=== PATIENT | female | born 2005 | race Caucasian/White ===

== ENCOUNTER 2024-08-15 21:38 | Emergency (ER) | payer OTHER ==
[2024-08-15] MEDS ORDERED: NA CHLORIDE 0.9% 1,000 ML ONE (22:36)
[2024-08-15 23:31] LABS: Absolute Lymphocytes (CBC) 0.4 K/uL (0.7-4.9); Absolute Monocytes 0.6 K/uL (0.1-1.3); Absolute Neutrophil 10.7 K/uL (1.8-8.0); Basophils % 0.3 % (0-1.3); Eosinophils % 0.1 % (0-4.4); Hematocrit 34.6 % (36.0-45.0); Hemoglobin 11.1 g/dL (12.0-15.0); Lymphocytes % 3.8 % (15.3-44.8); MCH 24.8 pg (27.0-35.0); MCHC 32.1 g/dL (32.0-36.0); MCV 77.3 fL (80-100); MPV 9.8 fL (7.6-11.3); Monocytes % 4.8 % (3.3-12.3); Platelets 298 thou/uL (152-406); RBC Red Blood Cell Count 4.47 M/uL (3.86-4.86); Red Cell Distribution Width 14.1 % (12.1-15.2)
[2024-08-15 23:35] LABS: PT Prothrombin Time 12.8 SECONDS (9.4-12.5); Protime INR 1.15
[2024-08-15 23:45] LABS: ALT/SGPT 65 U/L (13-56); AST/SGOT 69 U/L (15-37); Albumin 2.7 g/dL (3.4-5.0); Albumin/Globulin Ratio 0.6 (1.1-1.8); Alkaline Phosphatase 128 U/L (45-117); Anion Gap 10.2 mEq/L (5.0-15.0); BUN Blood Urea Nitrogen 4 mg/dL (7-18); Bicarbonate 23 mEq/L (21-32); Bilirubin Total 0.3 mg/dL (0.2-1.0); Globulin 4.6 g/dL (2.3-3.5); Glomerular Filtration Rate 128 ml/min (=/>90); Glucose Level 103 mg/dL (74-106); NT PRO-BNP 18 pg/mL (<125); Potassium 3.2 mEq/L (3.5-5.1); Protein, Total 7.3 g/dL (6.4-8.2); Sodium Level 136 mEq/L (136-145)
[2024-08-15 23:46] LABS: Troponin High Sensitivity < 3.0 pg/mL (<58.9)
[2024-08-15 23:54] LABS: SARS-CoV-2 Antigen CONTROL BLUE LINE VIS/BG OK; SARS-CoV-2 Antigen Rapid Res Negative (Negative)
[2024-08-16] MEDS ORDERED: OSELTAMIVIR 75 MG CAP PO ONE
[2024-08-16] MEDS ORDERED: POTASSIUM 25 MEQ EFFERV TAB ONE
[2024-08-16] MEDS ORDERED: ACETAMINOPHEN 500 MG TAB ONE
[2024-08-16] MEDS ORDERED: NA CHLORIDE 0.9% 2,000 ML ONE
[2024-08-16 00:29] LABS: Specific Gravity 1.019 (1.005-1.030); Sqamous Epithelial <5 /HPF (None Seen); Urine Bacteria None Seen /HPF (<20); Urine Bilirubin NEGATIVE (Negative); Urine Blood Negative (Negative); Urine Clarity Clear (Clear); Urine Color Light-Yellow (Yellow); Urine Culture Reflex Order NOT NEEDED; Urine Glucose NEGATIVE (Negative); Urine Ketones 1+ (Negative); Urine Microscopic Reflex YN ORDER UMIC; Urine Nitrite NEGATIVE (Negative); Urine Protein NEGATIVE (Negative); Urine RBC None Seen /HPF (None Seen); Urine Urobilinogen Normal (Normal); Urine WBC <5 /HPF (<5)
[2024-08-16 01:05] LABS: Band Neutrophils 14 % (0-1); Differential Total Cells Count 100; Lymphocytes 5 % (15-42); Monocytes 4 % (0-10); Segmented Neutrophils 77 % (40-80)
[2024-08-16 01:06] LABS: Blood Morphology Comment NOT SEEN (NOT SEEN); Platelet Estimate ADEQ
--- NOTE | 2024-08-16 01:34 | ER ---
Nurse's Notes [facility] Name: Mi Cordova Age: 19 yrs Sex: Female : 2005 Arrival Date: 08/15/2024 Time: 21:38 Bed 6 Private MD: Diagnosis: Influenza due to identified novel influenza A virus with other respiratory manifestations;Shortness of breath;Sepsis, unspecified organism Presentation: 08/15 22:03 Chief complaint: Patient states: x3 days shivering, cough, congestion, body aches. Went tm6 to PCP got azithromycin, but feeling worse today. Took tylenol around 1900. Having nausea and vomiting. Coronavirus screen: Client denies travel out of the [place] in the last 14 days. Ebola Screen: Patient negative for fever greater than or equal to 101.5 degrees Fahrenheit, and additional compatible Ebola Virus Disease symptoms Patient denies exposure to infectious person. Patient denies travel to an Ebola-affected area in the 21 days before illness onset. No symptoms or risks identified at this time. Initial Sepsis Screen: Does the patient meet any 2 criteria? Temp <36.0*C (96.8*F)) or > 38.3*C (100.9*F). HR > 90 bpm. Yes Does the patient have a suspected source of infection? No. Patient's initial sepsis screen is negative. Risk Assessment: Do you want to hurt yourself or someone else? Patient reports no desire to harm self or others. Onset of symptoms was August 13, 2024. 22:03 Method Of Arrival: Ambulatory tm6 22:03 Acuity: TIGRE 3 tm6 Triage Assessment: 22:04 General: Appears uncomfortable, Behavior is calm, cooperative. Pain: Complains of pain tm6 in body aches Pain currently is 5 out of 10 on a pain scale. Quality of pain is described as aching. EENT: Reports nasal congestion nasal discharge. Neuro: Level of Consciousness is awake, alert, obeys commands, Oriented to person, place, time, situation. Cardiovascular: Patient's skin is warm and dry. Respiratory: Airway is patent Respiratory effort is even, unlabored, Respiratory pattern is regular, symmetrical, Breath sounds are clear. GI: Abdomen is flat, non-distended, Reports nausea, vomiting, since x3 days. : No signs and/or symptoms were reported regarding the genitourinary system. Derm: No signs and/or symptoms reported regarding the dermatologic system. Musculoskeletal: Reports body aches. 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 - Infectious Disease History:: Denies. - Social history:: Smoking status: Patient denies any tobacco usage or history of. Screenin:47 [facility] ED Fall Risk Assessment (Adult) History of falling in the last 3 months, bm8 including since admission No falls in past 3 months (0 pts) Confusion or Disorientation No (0 pts) Intoxicated or Sedated No (0 pts) Impaired Gait No (0 pts) Mobility Assist Device Used No (0 pt) Altered Elimination No (0 pt) Score/Fall Risk Level 0 - 2 = Low Risk Oriented to surroundings, Maintained a safe environment, Educated pt \T\ family on fall prevention, incl call for assistance when getting out of bed, Assessed \T\ reinforced patient's understanding of fall precautions, Hourly rounding (assess needs \T\ fall precautionary measures) done, Used ambulatory aids as needed (educated on \T\ assisted with), Used gait belt as appropriate. Abuse screen: Denies threats or abuse. Nutritional screening: No deficits noted. Tuberculosis screening: No symptoms or risk factors identified. Assessment: 22:45 Reassessment: Patient appears in no apparent distress at this time. Patient and/or bm8 family updated on plan of care and expected duration. Pain level reassessed. Patient is alert, oriented x 3, equal unlabored respirations, skin warm/dry/pink. Reassessment: pt reports cough congestion and fever for three days. General: Appears in no apparent distress. uncomfortable, Behavior is calm, cooperative, appropriate for age. Pain: Complains of pain in chest Pain does not radiate. Pain currently is 5 out of 10 on a pain scale. Quality of pain is described as aching, Pain began. Neuro: No deficits noted. Level of Consciousness is awake, alert, obeys commands, Oriented to person, place, time, situation, Appropriate for age. Cardiovascular: Reports palpitations, Capillary refill < 3 seconds in bilateral fingers Patient's skin is warm and dry. Rhythm is sinus tachycardia. Respiratory: Reports cough that is non-productive, Airway is patent Trachea midline Respiratory effort is even, unlabored, Respiratory pattern is regular, symmetrical, Breath sounds are clear bilaterally. GI: No signs and/or symptoms were reported involving the gastrointestinal system. : No signs and/or symptoms were reported regarding the genitourinary system. EENT: Throat is clear bilaterally Reports nasal congestion nasal discharge. Derm: No signs and/or symptoms reported regarding the dermatologic system. 08/16 00:10 Reassessment: Patient appears in no apparent distress at this time. No changes from bm8 previously documented assessment. Patient and/or family updated on plan of care and expected duration. Pain level reassessed. Patient is alert, oriented x 3, equal unlabored respirations, skin warm/dry/pink. 01:04 Reassessment: Patient appears in no apparent distress at this time. Patient and/or bm8 family updated on plan of care and expected duration. Pain level reassessed. Patient is alert, oriented x 3, equal unlabored respirations, skin warm/dry/pink. Patient states feeling better. Patient states symptoms have improved. 02:27 Reassessment: Patient appears in no apparent distress at this time. No changes from lg3 previously documented assessment. Patient and/or family updated on plan of care and expected duration. Pain level reassessed. Patient is alert, oriented x 3, equal unlabored respirations, skin warm/dry/pink. 03:58 Reassessment: Patient appears in no apparent distress at this time. Patient and/or bm8 family updated on plan of care and expected duration. Pain level reassessed. Patient is alert, oriented x 3, equal unlabored respirations, skin warm/dry/pink. Patient states feeling better. Patient states symptoms have improved. 04:09 Reassessment: report given to LOLIS Aguilar at [facility]. 8 Vital Signs: 08/15 21:59 Temp 101(O); tm6 22:00 BP 139 / 81; Pulse 140; Resp 20; Pulse Ox 100% on R/A; MAP 98 mmHg; Weight 97.07 kg; tm6 Height 6 ft. 0 in. ; 22:47 BP 132 / 87; Pulse 137; Resp 20; Pulse Ox 100% ; Pain 5/10; bm8 08/16 00:09 BP 120 / 80; Pulse 133; Resp 20; Temp 101.7; Pulse Ox 99% ; Pain 4/10; bm8 01:04 BP 118 / 65; Pulse 137; Resp 21; Temp 101.2; Pulse Ox 98% ; Pain 4/10; bm8 02:28 BP 120 / 64; Pulse 139; Resp 19 S; Pulse Ox 98% on R/A; lg3 03:58 BP 113 / 48; Pulse 116; Resp 20; Temp 98.5; Pulse Ox 98% ; Pain 0/10; bm8 08/15 22:00 Body Mass Index 29.02 (97.07 kg, 182.88 cm) tm6 22:47 Pain Scale: Adult bm8 08/16 00:09 Pain Scale: Adult bm8 01:04 Pain Scale: Adult bm8 03:58 Pain Scale: Adult bm8 Delray Coma Score: 08/15 22:47 Eye Response: spontaneous(4). Motor Response: obeys commands(6). Verbal Response: bm8 oriented(5). Total: 15. 08/16 00:09 Eye Response: spontaneous(4). Motor Response: obeys commands(6). Verbal Response: bm8 oriented(5). Total: 15. 01:04 Eye Response: spontaneous(4). Motor Response: obeys commands(6). Verbal Response: bm8 oriented(5). Total: 15. 03:58 Eye Response: spontaneous(4). Motor Response: obeys commands(6). Verbal Response: bm8 oriented(5). Total: 15. ED Course: 08/15 21:43 Patient arrived in ED. gm2 21:54 Luca Melissa PA is PHCP. cp 21:54 Winnie Oden MD is Attending Physician. cp 22:04 Triage completed. tm6 22:06 Arm band placed on right wrist. tm6 22:25 Missed attempt(s): 20 gauge in right antecubital area. Bleeding controlled, band aid bm8 applied, catheter tip intact. 22:35 Initial lab(s) drawn, by me, sent to lab. First set of blood cultures drawn by me, EKG bm8 done, by ED staff, reviewed by Luca LE. Inserted saline lock: 22 gauge in left antecubital area, using aseptic technique. Blood collected. Flushed with 10 mL NS. Patient maintains SpO2 saturation greater than 95% on room air. 22:44 Kamlesh Chaudhari, RN is Primary Nurse. bm8 22:47 Patient has correct armband on for positive identification. Placed in gown. Bed in low bm8 position. Call light in reach. Side rails up X2. Adult w/ patient. Client placed on continuous cardiac and pulse oximetry monitoring. NIBP monitoring applied. monitor technician on. Pulse ox on. NIBP on. Door closed. Noise minimized. Pillow given. Verbal reassurance given. Head of bed elevated. 22:47 No provider procedures requiring assistance completed. bm8 22:50 Second set of blood cultures drawn by me, COVID swab sent to lab. Flu and/or RSV swab bm8 sent to lab. Strep swab sent to lab. 22:54 Chest Single View XRAY In Process Unspecified. EDMS 08/16 01:15 US OB Limited In Process Unspecified. EDMS 01:39 Initiate transfer with Rai Velazquez at [facility]. kmf 03:09 Received call from [place] transfer clerk, will try contacting Dr Moran and [facility] will call back once trasnfer is approved. 03:58 Provided Education on: need for transfer. bm8 03:58 Patient transferred, IV remains in place. bm8 04:15 Patient was accepted at [facility] by Dr. Phoenix \T\ [id number]. Admin approval given km by Rai Velazquez \T\[id number]. [phone] number for nurse to nurse report. Patient will go to room 5 [facility]. [facility] to transfer patient. Administered Medications: 08/15 22:44 Drug: NS 0.9% IV 1000 ml IV at 1000 ml once; to be given as a bolus over 60 minutes bm8 Route: IV; Rate: 1000 ml; Site: left antecubital; 08/16 00:09 Follow up: Response: No adverse reaction; IV Status: Completed infusion; IV Intake: bm8 1000ml 00:08 Drug: NS 0.9% IV 1000 ml IV at 1000 ml once; to be given as a bolus over 60 minutes bm8 Route: IV; Rate: 1000 ml; Site: left antecubital; 01:03 Follow up: Response: No adverse reaction; IV Status: Completed infusion; IV Intake: bm8 1000ml 00:08 Drug: Acetaminophen PO 1000 mg PO once Route: PO; bm8 01:03 Follow up: Response: No adverse reaction bm8 00:08 Drug: Potassium PO Effervescent Tablet 50 mEq PO once; dissolve in 4 ounces of water or bm8 juice Route: PO; 01:03 Follow up: Response: No adverse reaction bm8 00:09 Drug: Oseltamivir PO 75 mg PO once Route: PO; bm8 01:03 Follow up: Response: No adverse reaction bm8 00:24 Drug: NS 0.9% IV 1000 ml IV at 1000 ml once; to be given as a bolus over 60 minutes lg3 Route: IV; Rate: 1000 ml; Site: left antecubital; 01:04 Follow up: Response: No adverse reaction; IV Status: Completed infusion; IV Intake: bm8 1000ml 02:21 Drug: Rocephin IV 1 grams IV at calculated rate once; Given slow IV push per pharmacy lg3 instructions Route: IV; Rate: calculated rate; Site: left antecubital; 02:21 Follow up: Response: No adverse reaction; IV Status: Completed infusion; IV Intake: [id number] 02:21 Drug: Zithromax IVPB 500 mg IVPB once over 1 hrs; mix in 250 mL NS Route: IVPB; Infused lg3 Over: 1 hrs; Site: left antecubital; 04:00 Follow up: Response: No adverse reaction; IV Status: Completed infusion; IV Intake: bm8 250ml 02:21 Drug: Ondansetron IVP 4 mg IVP once; over 2 minutes Route: IVP; Site: left antecubital; lg3 02:32 Follow up: Response: No adverse reaction; Marked relief of symptoms; Nausea is decreasedlg3 02:21 Drug: NS 0.9% IV 1000 ml IV at 125 ml/hr continuous Route: IV; Rate: 125 ml/hr; Site: lg3 left antecubital; 04:59 Follow up: Response: No adverse reaction; IV Status: Completed infusion; Infusion bm8 continued upon transfer Medication: 08/15 22:47 VIS not applicable for this client. bm8 Intake: 08/16 00:09 IV: 1000ml; Total: 1000ml. bm8 01:03 IV: 1000ml; Total: 2000ml. bm8 01:04 IV: 1000ml; Total: 3000ml. bm8 02:21 IV: 10ml; Total: 3010ml. lg3 04:00 IV: 250ml; Total: 3260ml. bm8 Outcome: 01:34 ER care complete, transfer ordered by MD. cp 04:58 Patient left the ED. bm8 05:01 Transferred by ground EMS to [facility], Transfer form completed. X-rays sent bm8 w/ patient. 05:01 Condition: stable 05:01 Instructed on follow up and referral plans. the need for transfer, safety practices, Demonstrated understanding of instructions, follow-up care, medications, Signatures: Dispatcher [employer] EDMS Luca Melissa PA PA cp Able, Lacie, RN RN lg3 Jailyn Mccoy 2 Kelsie Yousif [facility] Lakeisha Rojas RN RN tm6 Kamlesh Chaudhari RN RN bm8 Corrections: (The following items were deleted from the chart) 08/15 22:06 22:03 Chief complaint: Patient states: x3 days shivering, cough, congestion, body tm6 aches. Went to PCP got azithromycin, but feeling worse today. Took tylenol around 1900 tm6 08/16 01:06 01:04 BP 118 / 65; Pulse 137bpm; Resp 21bpm; Pulse Ox 98%; Temp 101.5F; Pain 4/10, bm8 Adult; bm8
--- NOTE | 2024-08-16 01:35 | EDPHYS ---
Physician Documentation [facility] Name: Mi Cordova Age: 19 yrs Sex: Female : 2005 Arrival Date: 08/15/2024 Time: 21:38 Bed 6 Private MD: ED Physician Winnie Oden HPI: 08/15 22:25 This 19 yrs old Female presents to ER via Ambulatory with complaints of Cough, cp Congestion, Fever, 23 weeks preg. 22:25 The patient or guardian reports cough, with productive sputum. cp 22:25 Onset: The symptoms/episode began/occurred 3 day(s) ago. Associated signs and symptoms: cp Pertinent positives: fever, sore throat, vomiting, shortness of breath, Pertinent negatives: chest pain, diarrhea. Patient is and reports being approximately 23 weeks . Seen by primary OB earlier today for cough, congestion and prescribed Zithromax antibiotic. 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 - Infectious Disease History:: Denies. - Social history:: Smoking status: Patient denies any tobacco usage or history of. ROS: 22:30 Constitutional: Positive for body aches, fever, cp 22:30 Cardiovascular: Negative for chest pain, edema, cp 22:30 Respiratory: Positive for cough, shortness of breath, 22:30 Abdomen/GI: Positive for nausea and vomiting, 22:30 Neuro: Negative for altered mental status, dizziness, headache, weakness, Exam: 22:33 Constitutional: The patient appears in no acute distress, alert, awake, cp non-diaphoretic, non-toxic, well developed, well nourished, 22:33 Head/Face: Normocephalic, atraumatic. cp 22:33 Eyes: Periorbital structures: appear normal, Conjunctiva: normal, no exudate, no injection, Sclera: no appreciated abnormality, Lids and lashes: appear normal, bilaterally, 22:33 ENT: External ear(s): are unremarkable, Nose: is normal, Mouth: Lips: moist, Oral mucosa: moist, Posterior pharynx: Airway: no evidence of obstruction, patent, 22:33 Neck: ROM/movement: is normal, is supple, without pain, no range of motions limitations, no meningismus, no nuchal rigidity, 22:33 Chest/axilla: Inspection: normal, 22:33 Cardiovascular: Rate: tachycardic, Rhythm: regular, JVD: is not appreciated, 22:33 Respiratory: the patient does not display signs of respiratory distress, Respirations: labored breathing, that is mild, Breath sounds: bronchial sounds, that are mild, are heard diffusely, 22:33 Abdomen/GI: Inspection: gravid appearance, is noted, Bowel sounds: active, all quadrants, Palpation: abdomen is soft and non-tender, in all quadrants, 22:35 ECG was reviewed by the Attending Physician. cp Vital Signs: 21:59 Temp 101(O); tm6 22:00 BP 139 / 81; Pulse 140; Resp 20; Pulse Ox 100% on R/A; MAP 98 mmHg; Weight 97.07 kg; tm6 Height 6 ft. 0 in. ; 22:47 BP 132 / 87; Pulse 137; Resp 20; Pulse Ox 100% ; Pain 5/10; bm8 08/16 00:09 BP 120 / 80; Pulse 133; Resp 20; Temp 101.7; Pulse Ox 99% ; Pain 4/10; bm8 01:04 BP 118 / 65; Pulse 137; Resp 21; Temp 101.2; Pulse Ox 98% ; Pain 4/10; bm8 02:28 BP 120 / 64; Pulse 139; Resp 19 S; Pulse Ox 98% on R/A; lg3 03:58 BP 113 / 48; Pulse 116; Resp 20; Temp 98.5; Pulse Ox 98% ; Pain 0/10; bm8 08/15 22:00 Body Mass Index 29.02 (97.07 kg, 182.88 cm) tm6 22:47 Pain Scale: Adult bm8 08/16 00:09 Pain Scale: Adult bm8 01:04 Pain Scale: Adult bm8 03:58 Pain Scale: Adult bm8 Donal Coma Score: 08/15 22:47 Eye Response: spontaneous(4). Motor Response: obeys commands(6). Verbal Response: bm8 oriented(5). Total: 15. 08/16 00:09 Eye Response: spontaneous(4). Motor Response: obeys commands(6). Verbal Response: bm8 oriented(5). Total: 15. 01:04 Eye Response: spontaneous(4). Motor Response: obeys commands(6). Verbal Response: bm8 oriented(5). Total: 15. 03:58 Eye Response: spontaneous(4). Motor Response: obeys commands(6). Verbal Response: bm8 oriented(5). Total: 15. MDM: 08/15 22:07 Medical Screening Exam initiated 08/16 01:40 Data reviewed: vital signs, nurses notes, lab test result(s), EKG, radiologic studies, cp plain films, I have discussed the patient's presentation/case with the attending Emergency Department Physician; and as a result, I will transfer patient. 01:40 Counseling: I had a detailed discussion with the patient and/or guardian regarding the historical points, exam findings, and any diagnostic results supporting the discharge/admit diagnosis, lab results, radiology results, the need to transfer to another facility, [facility] does not immediately have the required specialist. Response to treatment: the patient's symptoms have mildly improved after treatment. 01:49 Management of patient was discussed with the following: Cnc Set Up Operator: DR Gomez, on-call physician for DR Kathrine Moran the patient's primary FAMILY AND CONSUMER SCIENCES TEACHER, who will contact OB hospitalist at [facility] to facilitate transfer. 02:15 Post IV fluid administration reassessment for Sepsis: Client prescribed 30 mL/kg IVF. Sepsis focused reassessment complete. Heart: Tachycardia noted. Lungs: Noted to be clear bilaterally. 08/15 22:23 Order name: Blood Culture Adult (2) 08/15 22:23 Order name: CBC with Diff; Complete Time: 01:28 cp 08/16 01:28 Interpretation: Normal except: WBC 11.70; HGB 11.1; HCT 34.6; MCV 77.3; MCH 24.8; LEONARD% cp 91.0; LYM% 3.8; NEUT A 10.7; LYMA 0.4. 08/15 22:23 Order name: CMP; Complete Time: 23:48 cp 08/15 23:48 Interpretation: Normal except: K 3.2; BUN 4; AST 69; ALT 65; ALK 128; ALB 2.7; GLOB cp 4.6; A/G 0.6. 08/15 22:23 Order name: Lactate w/ 2H reflex if indic.; Complete Time: 23:48 08/15 22:23 Order name: Protime (+inr); Complete Time: 23:48 08/15 22:23 Order name: Ptt, Activated; Complete Time: 23:48 08/15 22:23 Order name: Urinalysis w/ reflexes; Complete Time: 01:28 08/15 22:23 Order name: Troponin High Sensitivity; Complete Time: 23:48 08/15 22:23 Order name: BNP; Complete Time: 23:48 08/15 22:23 Order name: SARS RAPID; Complete Time: 01:28 08/15 22:23 Order name: Strep; Complete Time: 23:48 08/15 22:23 Order name: Influenza Screen (a \T\ B); Complete Time: 23:48 08/15 23:49 Interpretation: Reviewed. 08/15 23:38 Order name: Manual Differential; Complete Time: 01:28 [facility] 08/16 01:29 Interpretation: Normal except: BANDS [F] 14; LYM 5. 08/15 23:44 Order name: Throat Culture EDKY 08/15 22:23 Order name: Chest Single View XRAY 08/16 00:27 Order name: US OB Limited; Complete Time: 03:01 08/15 22:23 Order name: EKG; Complete Time: 22:23 08/15 22:23 Order name: Accucheck; Complete Time: 22:44 08/15 22:23 Order name: Cardiac monitoring; Complete Time: 22:44 08/15 22:23 Order name: EKG - Nurse/Tech; Complete Time: 22:45 08/15 22:23 Order name: IV Saline Lock - Large Bore; Complete Time: 22:45 08/15 22:23 Order name: Labs collected and sent; Complete Time: 22:45 08/15 22:23 Order name: O2 Per Protocol; Complete Time: 22:45 08/15 22:23 Order name: O2 Sat Monitoring; Complete Time: 22:45 08/15 22:23 Order name: Vital Signs; Complete Time: 22:45 cp EC/21 22:35 Rate is 140 beats/min. Rhythm is regular. NC interval is normal. QRS interval is cp normal. QT interval is normal. T waves are Inverted in lead aVR. Interpreted by me. Reviewed by me. Administered Medications: 22:44 Drug: NS 0.9% IV 1000 ml IV at 1000 ml once; to be given as a bolus over 60 minutes bm8 Route: IV; Rate: 1000 ml; Site: left antecubital; 08/16 00:09 Follow up: Response: No adverse reaction; IV Status: Completed infusion; IV Intake: bm8 1000ml 00:08 Drug: NS 0.9% IV 1000 ml IV at 1000 ml once; to be given as a bolus over 60 minutes bm8 Route: IV; Rate: 1000 ml; Site: left antecubital; 01:03 Follow up: Response: No adverse reaction; IV Status: Completed infusion; IV Intake: bm8 1000ml 00:08 Drug: Acetaminophen PO 1000 mg PO once Route: PO; bm8 01:03 Follow up: Response: No adverse reaction bm8 00:08 Drug: Potassium PO Effervescent Tablet 50 mEq PO once; dissolve in 4 ounces of water or bm8 juice Route: PO; 01:03 Follow up: Response: No adverse reaction bm8 00:09 Drug: Oseltamivir PO 75 mg PO once Route: PO; bm8 01:03 Follow up: Response: No adverse reaction bm8 00:24 Drug: NS 0.9% IV 1000 ml IV at 1000 ml once; to be given as a bolus over 60 minutes lg3 Route: IV; Rate: 1000 ml; Site: left antecubital; 01:04 Follow up: Response: No adverse reaction; IV Status: Completed infusion; IV Intake: bm8 1000ml 02:21 Drug: Rocephin IV 1 grams IV at calculated rate once; Given slow IV push per pharmacy lg3 instructions Route: IV; Rate: calculated rate; Site: left antecubital; 02:21 Follow up: Response: No adverse reaction; IV Status: Completed infusion; IV Intake: [id number] 02:21 Drug: Zithromax IVPB 500 mg IVPB once over 1 hrs; mix in 250 mL NS Route: IVPB; Infused lg3 Over: 1 hrs; Site: left antecubital; 04:00 Follow up: Response: No adverse reaction; IV Status: Completed infusion; IV Intake: bm8 250ml 02:21 Drug: Ondansetron IVP 4 mg IVP once; over 2 minutes Route: IVP; Site: left antecubital; lg3 02:32 Follow up: Response: No adverse reaction; Marked relief of symptoms; Nausea is decreasedlg3 02:21 Drug: NS 0.9% IV 1000 ml IV at 125 ml/hr continuous Route: IV; Rate: 125 ml/hr; Site: lg3 left antecubital; 04:59 Follow up: Response: No adverse reaction; IV Status: Completed infusion; Infusion bm8 continued upon transfer Disposition: 23:31 Chart complete. cp Disposition Summary: 08/16/24 01:34 Transfer Ordered Notes: Transfer Location: Other Acute Care Facility cp Reason: Higher level of care cp Condition: Stable cp Problem: new cp Symptoms: have improved cp Accepting Physician: doctor(08/16/24 04:58) bm8 Diagnosis - Influenza due to identified novel influenza A virus with other respiratory cp manifestations - Shortness of breath cp - Sepsis, unspecified organism cp Forms: - Medication Reconciliation Form cp - SBAR form cp Critical care time excluding procedures: 23:31 Critical care time: Bedside Care: 7 minutes, Consultation: 25 minutes, Family cp Intervention: 5 minutes. Total time: 37 minutes Signatures: Dispatcher [employer] EDMS Luca Melissa PA PA cp Able, Lacie RN RN lg3 Winnie Oden MD MD sp3 Lakeisha Rojas RN RN tm6 Kamlesh Chaudhari RN RN bm8 Corrections: (The following items were deleted from the chart) 00:24 08/15 23:48 FHT's ordered. cp lg3 08/16 01:41 01:34 doctor cp cp 04:58 01:41 doctor cp bm8
[2024-08-16] MEDS ORDERED: NA CHLORIDE 0.9% 250 ML ONE (01:57)
[2024-08-16] MEDS ORDERED: CEFTRIAXONE 1000 MG/VIAL ONE (01:57)
[2024-08-16] MEDS ORDERED: AZITHROMYCIN 500 MG INJ IVPB ONE (01:57)
[2024-08-16] MEDS ORDERED: NA CHLORIDE 0.9% 1,000 ML ONE (01:58)
[2024-08-16] MEDS ORDERED: ONDANSETRON 4 MG/2 ML VIAL ONE (02:09)
--- NOTE | 2024-08-16 02:09 | RAD REPORT ---
EXAM DESCRIPTION: US LIMITED 08/16/2024 1:48 AM SNAKER CLINICAL HISTORY: 19 years, Female, . COMPARISON: None. FINDINGS: Multiple grayscale images of the pelvis were performed. The adnexal structure demonstrate to be unremarkable. There is a single living intrauterine in cephalic presentation with femoral ultrasonographi c measurements: FL mean measurement of 4.28 cm corresponding to an ultrasonographic gestational age of 24 weeks and 0 days. With an estimated date of delivery of 12/06/2024. There was normal movement heart motion was detected at of 166 beats per minute. Placenta was posterior. IMPRESSION: Single living intrauterine in cephalic presentation with an ultrasonographic gestational ag e of 24 weeks 0 days. Placenta is posterior. Electronically signed by: Babatunde Golden MD 08/16/2024 02:05 AM SNAKER Due to temporary technical issues with the PACS/CrossCurrent scribe reporting system, reports are being signed by the in-house radiologist without review as a courtesy to ensure prompt reporting. The interpreting radiologist is fully responsible for the content of the report. Transcribed Date/Time: 08/16/2024 2:09 AM
--- NOTE | 2024-08-16 07:48 | RAD REPORT ---
EXAM DESCRIPTION: XR CHEST 1 VIEW 08/15/2024 11:03 PM CLIENT PARTNER CLINICAL HISTORY: 19 years, Female, SOB, cough. COMPARISON: None. FINDINGS: 1 view of the chest (AP portable projection) was obtained. No prior films are available at this roly e for comparison. There is normal lung volume. Mediastinum: The cardiomediastinal silhouette appears normal in size and shape. Lungs: No areas of consolidations or masses are identified. Heart: The heart is normal in size. Thoracic aorta: The thoracic aorta demonstrate to be normal. Pulmonary vasculature: The pulmonary vasculature is normal in distribution. Pleura: The costophrenic angles demonstrate to be sharp. Osseous structures: The bony structures demonstrate to be within normal limits. Other: External EKG leads within the [id number] limits diagnosis. IMPRESSION: No acute cardiopulmonary disease. Electronically signed by: Babatunde Golden MD 08/15/2024 11:30 PM CLIENT PARTNER Due to temporary technical issues with the PACS/Competitor reporting system, reports are being shahnaz d by the in-house radiologist without review as a courtesy to ensure prompt reporting the interpreting radiologist is fully responsible for the content of the report. Transcribed Date/Time: 08/16/2024 7:48 AM
[2024-08-16 08:02] VITALS: O2SAT 98
[2024-08-16 08:05] VITALS: BP 113/48; TEMP 98.5
--- NOTE | 2024-08-19 12:06 | EKG ---
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
== END 2024-08-16 04:58 ==
LOC: ER 21:38
DX: O99.512 Diseases of the respiratory system complicating pregnancy, second trimester (principal); J10.1 Influenza due to other identified influenza virus with other respiratory manifestations; O98.812 Other maternal infectious and parasitic diseases complicating pregnancy, second trimester; Z3A.23 23 weeks gestation of pregnancy; Z11.52 Encounter for screening for COVID-19
CPT/HCPCS: 96365; 96361; 93005; 87040 ×2; 87070; 85025; 81001; 36415; 85610; 87081; 83605; 85730; 84484; 80053; 83880; 87804 ×2; 71045; 76815; 96375; 99285; 96366; 87811; J2405; J7050; J7030 ×3; J0696

== ENCOUNTER 2024-11-09 12:56 | Emergency (ER) | payer OTHER ==
[2024-11-09] MEDS ORDERED: Magnesium Sulfate 2gm IVPB 2 G/50 ML BAG IV ONE (13:23)
[2024-11-09 13:53] LABS: Absolute Eosinophils 0.1 K/uL (0-0.5); Absolute Lymphocytes (CBC) 1.8 K/uL (0.7-4.9); Absolute Monocytes 0.5 K/uL (0.1-1.3); Absolute Neutrophil 6.6 K/uL (1.8-8.0); Basophils % 0.6 % (0-1.3); Eosinophils % 1.2 % (0-4.4); Hemoglobin 10.6 g/dL (12.0-15.0); Lymphocytes % 19.8 % (15.3-44.8); MCH 22.2 pg (27.0-35.0); MCHC 32.1 g/dL (32.0-36.0); MCV 69.3 fL (80-100); MPV 8.3 fL (7.6-11.3); Neutrophils % 73.4 % (41.7-73.7); Platelets 407 thou/uL (152-406); RBC Red Blood Cell Count 4.76 M/uL (3.86-4.86); Red Cell Distribution Width 15.4 % (12.1-15.2)
[2024-11-09 13:55] LABS: Blood Morphology Comment NOTED (NOT SEEN); Microcytosis 1+; Platelet Estimate INCR; White Blood Cell Scan OK (OK)
[2024-11-09 14:10] LABS: Albumin 3.5 g/dL (3.4-5.0); Albumin/Globulin Ratio 0.9 (1.1-1.8); Anion Gap 7.9 mEq/L (5.0-15.0); Bilirubin Total 0.3 mg/dL (0.2-1.0); Globulin 3.8 g/dL (2.3-3.5); Potassium 3.9 mEq/L (3.5-5.1); Protein, Total 7.3 g/dL (6.4-8.2)
[2024-11-09 14:51] LABS: Specific Gravity 1.011 (1.005-1.030); Urine Bilirubin NEGATIVE (Negative); Urine Blood Negative (Negative); Urine Clarity Clear (Clear); Urine Color Light-Yellow (Yellow); Urine Glucose NEGATIVE (Negative); Urine Ketones NEGATIVE (Negative); Urine Microscopic Reflex YN NO UMIC; Urine Nitrite NEGATIVE (Negative); Urine Protein NEGATIVE (Negative); Urine Urobilinogen Normal (Normal)
--- NOTE | 2024-11-09 15:24 | EDPHYS ---
Physician Documentation [facility] Name: Mi Cordova Age: 19 yrs Sex: Female : 2005 Arrival Date: 11/09/2024 Time: 12:56 Bed 17 Private MD: ED Physician Ba Nino HPI: 11/09 13:15 This 19 yrs old Female presents to ER via Ambulatory with complaints of High Blood kb Pressure. 13:15 Pt is a 19 year old female who presents for high blood pressure. States she was kb diagnosed with preeclampsia at 28 weeks and has been on labetolol. Pt is 6 weeks . STates she checks her BP often and today it was 160/112. States her OB told her to come to the ER if it is ever that high. . 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 - Infectious Disease History:: Denies. - Social history:: Smoking status: Patient denies any tobacco usage or history of. ROS: 13:23 Constitutional: As per HPI kb Exam: 13:23 Constitutional: This is a well developed, well nourished patient who is awake, alert, kb and in no acute distress. Head/Face: Normocephalic, atraumatic. ENT: Moist Mucous membranes Cardiovascular: Regular rate Respiratory: Respirations even and unlabored. No increased work of breathing. Talking in full sentences Skin: Warm, dry with normal turgor. Normal color. MS/ Extremity: Pulses equal, no cyanosis. Neurovascular intact. Full, normal range of motion. Neuro: Awake and alert, GCS 15, oriented to person, place, time, and situation. 13:41 ECG was reviewed by the Attending Physician. kb Vital Signs: 12:46 BP 159 / 107; Pulse 109; Resp 18; Temp 98.3(O); Pulse Ox 97% ; Weight 95.71 kg; Height db 5 ft. 11 in. ; 14:55 BP 138 / 89; Pulse 80; Resp 16; Pulse Ox 99% on R/A; jb4 15:23 BP 125 / 80; kb 12:46 Body Mass Index 29.43 (95.71 kg, 180.34 cm) db MDM: 13:03 Medical Screening Exam initiated kb 13:23 Data reviewed: vital signs, nurses notes. kb 15:24 Differential diagnosis: Eclampsia, preeclampsia, hypertension, hellp. Management of kb patient was discussed with the following: dr nino. Historians other than the Patient: Spouse/Significant Other: spouse. Counseling: I had a detailed discussion with the patient and/or guardian regarding the historical points, exam findings, and any diagnostic results supporting the discharge/admit diagnosis, lab results, the need for outpatient follow up, an OB/Gyne specialist, to return to the emergency department if symptoms worsen or persist or if there are any questions or concerns that arise at home. ED course: Protein/creatinine ratio 0.18. Patient is asymptomatic of blood pressure. Blood pressure has decreased since arrival. Patient will be discharged, educated to follow-up with OB.. 11/09 13:04 Order name: CBC with Diff; Complete Time: 14:05 kb 11/09 13:04 Order name: CMP; Complete Time: 14:11 kb 11/09 13:04 Order name: Magnesium; Complete Time: 14:11 kb 11/09 13:04 Order name: Urinalysis w/ reflexes; Complete Time: 14:54 kb 11/09 13:04 Order name: Urine Creatinine; Complete Time: 14:58 kb 11/09 13:43 Order name: Urine For Protein, Random; Complete Time: 14:54 ec2 11/09 13:55 Order name: CBC Smear Scan; Complete Time: 14:05 EDMS 11/09 13:04 Order name: IV Start; Complete Time: 13:47 kb 11/09 13:04 Order name: EKG - Nurse/Tech; Complete Time: 13:46 kb EC:41 Rate is 78 beats/min. Rhythm is regular. QRS [place] is Normal. [place] interval is normal at kb 148 msec. QRS interval is normal at 78 msec. QT interval is normal at 417 msec. Administered Medications: 13:49 Drug: Magnesium Sulfate IVPB 2 grams IVPB once over 2 hrs Route: IVPB; Infused Over: 2 jb4 hrs; Site: right antecubital; 15:30 Follow up: Response: No adverse reaction; IV Status: Completed infusion; IV Intake: [id number] Disposition Summary: 11/09/24 15:23 Discharge Ordered Notes: Location: Home kb Condition: Stable kb Diagnosis - Essential (primary) hypertension kb Followup: kb - With: Emergency Department - When: As needed - Reason: Worsening of condition Followup: kb - With: Private Physician - When: 2 - 3 days - Reason: Recheck today's complaints, Continuance of care, Re-evaluation by your physician Discharge Instructions: - Discharge Summary Sheet kb - Preeclampsia and Eclampsia kb - Hypertension, Adult, [id number] kb Forms: - Medication Reconciliation Form kb - Antibiotic Education kb - Prescription Opioid Use kb - Patient Portal Instructions kb - Leadership Thank You Letter kb - Work release form jb4 Signatures: Dispatcher [employer] EDMS Zoila Plata FNP-Leo BRIGGS-Herman Kaur, RN RN jb4 Delicia Thornton RN RN db Corrections: (The following items were deleted from the chart) 13:44 13:44 URINE FOR PROTEIN, RANDOM+CHEM UR.[email or web address].BRZ ordered. EDMS EDMS
--- NOTE | 2024-11-09 15:24 | ER ---
Nurse's Notes [facility] Name: Mi Cordova Age: 19 yrs Sex: Female : 2005 Arrival Date: 11/09/2024 Time: 12:56 Bed 17 Private MD: Diagnosis: Essential (primary) hypertension Presentation: 11/09 12:46 Chief complaint: Patient states: HIGH BP 160/112 AT HOME STARTED GETTING HIGH YESTERDAY db TAKING LABETALOL. 6 WKS POST HAD AN EMERGENCY CSECTION WHEN 28 WEEKS DUE TO PREECLAMPSIA. 12:46 Coronavirus screen: Client denies travel out of the [place] in the last 14 days. At this db time, the client does not indicate any symptoms associated with coronavirus-19. Ebola Screen: Patient negative for fever greater than or equal to 101.5 degrees Fahrenheit, and additional compatible Ebola Virus Disease symptoms Patient denies exposure to infectious person. Patient denies travel to an Ebola-affected area in the 21 days before illness onset. No symptoms or risks identified at this time. Initial Sepsis Screen: Does the patient meet any 2 criteria? HR > 90 bpm. No. Patient's initial sepsis screen is negative. Does the patient have a suspected source of infection? No. Patient's initial sepsis screen is negative. Risk Assessment: Do you want to hurt yourself or someone else? Patient reports no desire to harm self or others. Onset of symptoms was November 09, 2024. 12:46 Method Of Arrival: Ambulatory db 12:46 Acuity: TIGRE 3 db Triage Assessment: 12:48 General: Appears in no apparent distress. comfortable, Behavior is cooperative, db appropriate for age, anxious. Pain: Denies pain. Neuro: Level of Consciousness is awake, alert, obeys commands, Oriented to person, place, time, situation. Respiratory: Airway is patent Respiratory effort is even, unlabored, Respiratory pattern is regular, symmetrical. 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 - Infectious Disease History:: Denies. - Social history:: Smoking status: Patient denies any tobacco usage or history of. Screenin:30 [facility] ED Fall Risk Assessment (Adult) History of falling in the last 3 months, jb4 including since admission No falls in past 3 months (0 pts) Confusion or Disorientation No (0 pts) Intoxicated or Sedated No (0 pts) Impaired Gait No (0 pts) Mobility Assist Device Used No (0 pt) Altered Elimination No (0 pt) Score/Fall Risk Level 0 - 2 = Low Risk Oriented to surroundings, Maintained a safe environment. Abuse screen: Denies threats or abuse. Nutritional screening: No deficits noted. Tuberculosis screening: No symptoms or risk factors identified. Assessment: 14:30 General: Appears in no apparent distress. comfortable, Behavior is calm, cooperative, jb4 appropriate for age. Pain: Denies pain. Neuro: Level of Consciousness is awake, alert, obeys commands, Oriented to person, place, time, situation. Cardiovascular: Patient's skin is warm and dry. Respiratory: Airway is patent Respiratory effort is even, unlabored, Respiratory pattern is regular, symmetrical. Derm: Skin is intact, Skin is pink, warm \T\ dry. Musculoskeletal: Circulation, motion, and sensation intact. Range of motion:. 15:30 Reassessment: Patient appears in no apparent distress at this time. Patient and/or jb4 family updated on plan of care and expected duration. Pain level reassessed. Patient is alert, oriented x 3, equal unlabored respirations, skin warm/dry/pink. Vital Signs: 12:46 BP 159 / 107; Pulse 109; Resp 18; Temp 98.3(O); Pulse Ox 97% ; Weight 95.71 kg; Height db 5 ft. 11 in. ; 14:55 BP 138 / 89; Pulse 80; Resp 16; Pulse Ox 99% on R/A; jb4 15:23 BP 125 / 80; kb 12:46 Body Mass Index 29.43 (95.71 kg, 180.34 cm) db ED Course: 12:50 Arm band placed on. db 12:58 Patient arrived in ED. jj6 13:03 Zoila Plata FNP-C [facility]. kb 13:03 Ba Nino MD is Attending Physician. kb 13:07 Triage completed. db 13:20 EKG done, by ED staff, reviewed by Zoila GUEVARA. aa5 13:47 Magnesium Sent. jb4 13:47 CMP Sent. jb4 13:47 CBC with Diff Sent. jb4 14:38 Herman Ferrara, RN is Primary Nurse. jb4 15:40 Allergy band placed. Bed in low position. Call light in reach. Side rails up X 1. jb4 Provided Education on: discharge instructions.. 15:40 No provider procedures requiring assistance completed. IV discontinued, intact, jb4 bleeding controlled, No redness/swelling at site. Pressure dressing applied. Administered Medications: 13:49 Drug: Magnesium Sulfate IVPB 2 grams IVPB once over 2 hrs Route: IVPB; Infused Over: 2 jb4 hrs; Site: right antecubital; 15:30 Follow up: Response: No adverse reaction; IV Status: Completed infusion; IV Intake: [id number] Medication: 15:30 VIS not applicable for this client. jb4 Intake: 15:30 IV: 50ml; Total: 50ml. jb4 Outcome: 15:23 Discharge ordered by . nevaeh 15:40 Discharged to home ambulatory, jb4 15:40 Condition: stable 15:40 Discharge instructions given to patient, Instructed on discharge instructions, follow up and referral plans. Demonstrated understanding of instructions, follow-up care, 15:56 Patient left the ED. jb4 Signatures: Zoila Plata FNP-C FNP-Elba Florez, RN RN aa5 Herman Ferrara, RN RN jb4 Kim Ruiz jj6 Delicia Thornton RN RN db Corrections: (The following items were deleted from the chart) 13:07 13:05 Chief complaint: Patient states: HIGH BP 160/112 AT HOME STARTED GETTING HIGH db YESTERDAY TAKING LABETALOL. 6 WKS POST HAD AN EMERGENCY CSECTION WHEN 28 WEEKS DUE TO PREECLAMPSIA. db
[2024-11-09 16:00] VITALS: O2SAT 99
[2024-11-09 16:01] VITALS: BP 125/80
== END 2024-11-09 15:56 | disposition home or self-care (01) ==
LOC: MERGE 12:56 → ER 12:56
DX: I10 Essential (primary) hypertension (principal)
CPT/HCPCS: 96365; 85025; 36415; 83735; 81003; 82570; 80053; 84156; 99284; 96366; J3475